=== PATIENT | female | born 1955 | race African-American/Black ===

== ENCOUNTER 2019-04-08 12:45 | Outpatient (CLI) | payer OTHER ==
--- NOTE | 2019-04-08 20:45 | Consultation ---
DATE OF CONSULTATION: 04/08/2019 CHIEF COMPLAINT: Referral for screening colonoscopy. PAST MEDICAL HISTORY: 1. Hypertension. 2. . PAST SURGICAL HISTORY: 1. Cholecystectomy. 2. Carpal tunnel surgery. 3. Hysterectomy. 4. . 5. Sleeve gastrectomy 2018. MEDICATIONS: Atenolol, amlodipine, hydrochlorothiazide, loratadine. FAMILY HISTORY: Sister had lung cancer. SOCIAL HISTORY: The patient is a social drinker. Denies any IV drug abuse. Denies any tobacco abuse. ALLERGIES: No known drug allergy. REVIEW OF SYSTEMS: A 10-point review of systems was performed, was positive for occasional GERD and occasional constipation. PHYSICAL EXAMINATION: GENERAL: The patient is a well-developed female, in no acute distress. HEENT: Normocephalic and atraumatic. Sclerae . NECK: Supple. No evidence of obvious lymphadenopathy. CARDIOVASCULAR: Regular rate and rhythm. Plus S1 and S2. No obvious murmur. LUNGS: Clear to auscultation bilaterally. ABDOMEN: Positive bowel sounds. Soft and nontender. No rebound. No guarding. No peritoneal sign. EXTREMITIES: No cyanosis. No clubbing. No edema. ASSESSMENT/PLAN: This is a 63-year-old female, was referred to us for screening colonoscopy evaluation. The patient was given information about colonoscopy. Risks and benefits of the procedure was explained to her. The patient was given the prep, pending authorization to be scheduled. Byron Heatr M.D. DR: Felicitas JOB#: [id number] CC:
[2019-04-09] MEDS ORDERED: ATENOLOL25 MG ORAL (15:07)
[2019-04-09] MEDS ORDERED: AMLODIPINE BESYL5 MG ORAL (15:07)
[2019-04-09] MEDS ORDERED: LORATADINE10 M2 PO (15:07)
[2019-04-09] MEDS ORDERED: HYDROCHLOROTH12.5 MG ORAL (15:07)
== END 2019-04-08 14:45 | disposition home or self-care (01) ==
LOC: PAN 12:45
DX: K21.9 Gastro-esophageal reflux disease without esophagitis (principal); I10 Essential (primary) hypertension; Z90.49 Acquired absence of other specified parts of digestive tract; Z90.710 Acquired absence of both cervix and uterus; Z98.84 Bariatric surgery status; Z79.899 Other long term (current) drug therapy; K59.00 Constipation, unspecified
CPT/HCPCS: G0463